=== PATIENT | female | born 1950 | race Caucasian/White ===

== ENCOUNTER 2019-06-29 20:11 | Emergency (ER) | payer SELFPAY ==
[~2019-06-29 20:11] MED LIST: ESOM40CA PO; TELM40TA2 PO
--- NOTE | 2019-06-29 21:00 | NUR ---
Patient was called several times to be triaged. Patient was not present. Left with being triaged or seen by ERMD.
== END 2019-06-29 21:32 | disposition left against medical advice (07) ==
LOC: ER 20:11
DX: Z53.21 Procedure and treatment not carried out due to patient leaving prior to being seen by health care provider (principal)

== ENCOUNTER 2019-12-08 02:11 | Inpatient (IN) | payer SELFPAY ==
[~2019-12-08] VITALS: Ht 162.6 cm; Wt 79.4 kg
--- NOTE | 2019-12-08 02:17 | NUR ---
Pt walked in the ER w/ steady gait in stable condition c/o abdominal pain and bloating since yesterday afternoon.Pt states pain is sharp 9/10 radiating to back , aggrivated by food.Pt is A/O x4 ,speaks in complete senteces,clear speech, no neuro deficit noted. Respiratory even and unlabored, no SOB noted. pt had nausea,diarrhea, but denies any vomiting.Denies any distress.Pt skin is warm and dry. Bed at lowest position, sr up X2 , call light w/in reach, fall precautions implemented.
[2019-12-08] MEDS ORDERED: MORPHINE SULFATE 2 MG/1 ML DISP.SYRIN IV ONE (02:30)
[2019-12-08] MEDS ORDERED: MORPHINE SULFATE 2 MG/1 ML DISP.SYRIN ONE (02:33)
[2019-12-08 02:45] LABS: *BILIRUBIN,URIN NEGATIVE (NEGATIVE); *BLOOD, URINE NEGATIVE (NEGATIVE); *CLARITY,URINE CLEAR (CLEAR); *COLOR,URINE YELLOW (YELLOW); *KETONES,URINE NEGATIVE (NEGATIVE); *UROBILINOGEN,URINE 0.2 E.U./dl (NORMAL); LEUKOCYTE ESTERASE ,URINE TRACE (NEGATIVE); NITRITE, URINE NEGATIVE (NEGATIVE); PH,URINE 5.5 (5.0-8.0); UGLUCOSE NEGATIVE (NEGATIVE)
[2019-12-08] MEDS ORDERED: ONDANSETRON 4 MG/2 ML VIAL IV ONE (02:45)
[2019-12-08] MEDS ORDERED: IV NS 1000 ML 1,000 ML IV ONE (02:45)
[2019-12-08 02:50] LABS: BASOPHILS # (AUTO) 0.1 K/uL (0.0-8.0); BASOPHILS % (AUTO) 0.7 % (0.0-2.0); EOSINOPHILS # (AUTO) 0.1 K/uL (0.0-0.7); EOSINOPHILS % (AUTO) 1.2 % (0.0-7.0); HEMATOCRIT 45.8 % (31.2-41.9); LYMPHOCYTES # (AUTO) 1.7 K/uL (20.0-40.0); LYMPHOCYTES % (AUTO) 20.9 % (20.5-51.5); MEAN CORPUSCULAR HEMOGLOBIN 31.8 uug (24.7-32.8); MEAN CORPUSCULAR HGB CONC 35 g/dL (32.3-35.6); MEAN CORPUSCULAR VOLUME 91.4 fL (75.5-95.3); MONOCYTES # (AUTO) 0.6 K/uL (2.0-10.0); MONOCYTES % (AUTO) 6.9 % (0.0-11.0); NEUTROPHILS # (AUTO) 5.7 K/uL (1.8-8.9); NEUTROPHILS % (AUTO) 70.3 % (38.5-71.5); PLATELET COUNT (AUTO) 265 K/uL (179-408); RED BLOOD CELL COUNT(AUTO) 5.02 MIL/uL (3.63-4.92)
[2019-12-08 02:52] LABS: RBC,URINE 0-3 /HPF (0-3); WBC,URINE 20-50 /HPF (0-3)
[2019-12-08 02:53] LABS: BACTERIA,URINE MODERATE /HPF (NONE SEEN); SQUAMOUS EPITHELIAL CELL,UR FEW /HPF (NONE SEEN)
--- NOTE | 2019-12-08 03:03 | NUR ---
pt taken to ct scan .
[2019-12-08 03:14] LABS: BILIRUBIN,TOTAL 0.5 mg/dL (0.2-1.0); CREATININE 0.7 mg/dL (0.6-1.3); TOTAL PROTEIN, SERUM 7.7 g/dL (6.4-8.2)
[2019-12-08 03:29] LABS: BILIRUBIN,DIRECT 0.1 mg/dL (0.0-0.2)
--- NOTE | 2019-12-08 04:06 | NUR ---
ERMD PERFORMED GUAIAC TEST W/ HEMOCCULT CARD PROVIDED PRIVACY AND CHAPERONED BY NON LICENSED OPERATOR (SHANNON) NEGATIVE ON TEST PT ABLE TO TOLERATE PROCEDURE MONITORED ACCORDINGLY BED AT LOWEST POSITION SIDERAILSX2 UP
--- NOTE | 2019-12-08 04:54 | NUR ---
SHOAIB ON THE PHONE WITH ROBERT TEE PT OK TO ADMIT TO RM 316 DX: CHEST PAIN, ABD PAIN RA STILL C/O EPIGASTRIC PAIN +R AC G20
[2019-12-08] MEDS ORDERED: IV NS 1000 ML 1,000 ML IV PRN (04:57)
[2019-12-08] MEDS ORDERED: LIDOCAINE VISCUS 2% 15 ML UDC MM ONE (05:00)
[2019-12-08] MEDS ORDERED: MAGNESIUM HYDROXIDE 30 ML LIQUID UDC PO PRN (05:00)
[2019-12-08] MEDS ORDERED: Z GUARD REMEDY PASTE 57 GM TUBE TOP PRN (05:00)
[2019-12-08] MEDS ORDERED: DICYCLOMINE HCL LIQ 10 MG/5 ML UDC PO ONE (05:00)
[2019-12-08] MEDS ORDERED: ASPIRIN 81 MG TAB.CHEW PO ONE (05:00)
[2019-12-08] MEDS ORDERED: ACETAMINOPHEN 325 MG TABLET PO PRN (05:00)
[2019-12-08] MEDS ORDERED: ONDANSETRON 4 MG/2 ML VIAL IV PRN (05:00)
[2019-12-08] MEDS ORDERED: MAG HYDROX/AL HYDROX/SIMETH 30 ML LIQUID UDC PO ONE (05:00)
[2019-12-08] MEDS ORDERED: HYDROCODONE/APAP 5-325MG TABLET PO PRN (05:00)
--- NOTE | 2019-12-08 05:55 | NUR ---
Pt. admitted to tele room 316 , under care of Dr. Hunter Sorto. Belongs List completed.
--- NOTE | 2019-12-08 06:36 | NUR ---
RECEIVED PT FROM ER VIA [facility]. DX: CHEST PAIN. UNDER DR. ROBERT TEE. PT IN NO ACUTE DISTRESS. IV INTACT. SAFETY AND COMOFRT PROVIDED. WILL ENDORSE TO INCOMING NURSE FOR CONTINUITY OF CARE.
[2019-12-08 06:49] VITALS: BP 139/70
[2019-12-08] MEDS ORDERED: PANTOPRAZOLE SODIUM 40 MG TABLET.DR PO SCH (07:00)
--- NOTE | 2019-12-08 07:30 | NUR ---
Received patient awake and alert with diagnosis of chest pain under Dr. Singletary. Patient currently complains of chest tightness / but refuses to take any medication for pain. Denies having any shortness of breath at this time. Vital signs stable. Reports pain has improved since arriving to the hospital. Patient noted with right sided weakness due to history of stroke when she was 14. Patient instructed to call if symptoms worsen. Call light within reach. Will continue to monitor.
[2019-12-08 07:53] LABS: MAGNESIUM 1.9 mg/dL (1.8-2.4); PHOSPHOROUS 3.6 mg/dL (2.5-4.9)
[2019-12-08 08:59] LABS: THYROID STIMULATING HORMONE 2.108 mIU/mL (0.358-3.740)
[2019-12-08] MEDS ORDERED: LOSARTAN POTASSIUM 50 MG TABLET PO SCH (09:00)
[2019-12-08] MEDS ORDERED: METOPROLOL TARTRATE 50 MG TABLET PO SCH (09:00)
[2019-12-08 11:58] VITALS: BP 132/69
--- NOTE | 2019-12-08 15:00 | NUR ---
patient is awake, alert and verbally responsive. No signs of distress noted. No SOB. No complain of Pain or discomfort. denies chest pain. patient with Order to Discharge Home today, Discharge instructions given to patient and verbalized Understanding. All belongings was sent and signed by patient. Removed IV site, wrist band and olive grower. Patient was discharge via private car in stable condition.
[2019-12-09] MEDS ORDERED: ASPIRIN EC 81 MG TABLET.DR PO SCH (09:00)
== END 2019-12-08 15:00 | disposition home or self-care (01) | DRG 206 ==
LOC: ER 02:13 → TELE3 05:56
PROVIDERS: ADMIT Hospitalist; ATTEND Internal Medicine
DX: M94.0 Chondrocostal junction syndrome [Tietze] (principal); K21.9 Gastro-esophageal reflux disease without esophagitis; K57.30 Diverticulosis of large intestine without perforation or abscess without bleeding; Z86.73 Personal history of transient ischemic attack (TIA), and cerebral infarction without residual deficits; Z90.49 Acquired absence of other specified parts of digestive tract; Z79.899 Other long term (current) drug therapy; I08.3 Combined rheumatic disorders of mitral, aortic and tricuspid valves; E11.9 Type 2 diabetes mellitus without complications
CPT/HCPCS: 36415; 70030-TC; 71045; 76705; 83605; 83690; 83735; 84100; 84443; 85025; 87086; 93005; 93307; A4663; G0378; J2270; J7030

== ENCOUNTER 2020-04-18 05:56 | Inpatient (IN) | payer MEDICAID ==
[~2020-04-18] VITALS: Ht 165.1 cm; Wt 73.5 kg
[~2020-04-18 05:56] MED LIST changes: +LOSA100T3 PO; +METO50TA16 PO; -TELM40TA2 PO
[2020-04-18] MEDS ORDERED: ASPIRIN 81 MG TAB.CHEW PO ONE (06:45)
[2020-04-18] MEDS ORDERED: ASPIRIN 81 MG TAB.CHEW ONE (06:50)
[2020-04-18 06:56] LABS: EOSINOPHILS # (AUTO) 0.1 K/uL (0.0-0.7); EOSINOPHILS % (AUTO) 1.8 % (0.0-7.0); HEMATOCRIT 42.1 % (31.2-41.9); HEMOGLOBIN 14.3 g/dL (10.9-14.3); LYMPHOCYTES % (AUTO) 19.5 % (20.5-51.5); MEAN CORPUSCULAR HEMOGLOBIN 31.6 uug (24.7-32.8); MEAN CORPUSCULAR HGB CONC 34 g/dL (32.3-35.6); MEAN CORPUSCULAR VOLUME 92.7 fL (75.5-95.3); MONOCYTES # (AUTO) 0.4 K/uL (2.0-10.0); MONOCYTES % (AUTO) 8.7 % (0.0-11.0); NEUTROPHILS # (AUTO) 3.4 K/uL (1.8-8.9); PLATELET COUNT (AUTO) 236 K/uL (179-408); RED BLOOD CELL COUNT(AUTO) 4.54 MIL/uL (3.63-4.92); WHITE BLOOD COUNT (AUTO) 4.9 K/uL (3.8-11.8)
[2020-04-18 07:10] LABS: CREATININE 0.9 mg/dL (0.6-1.3); POTASSIUM 4.1 mmol/L (3.5-5.1)
[2020-04-18 07:25] LABS: BILIRUBIN,DIRECT 0.1 mg/dL (0.0-0.2); BILIRUBIN,TOTAL 1.5 mg/dL (0.2-1.0); TOTAL PROTEIN, SERUM 6.5 g/dL (6.4-8.2)
--- NOTE | 2020-04-18 07:25 | NUR ---
PT IS IN ROOM #2A. DR SABILLON EAVALUATED THE PT.
[2020-04-18] MEDS ORDERED: MORPHINE SULFATE 2 MG/1 ML DISP.SYRIN IV PRN (08:30)
[2020-04-18] MEDS ORDERED: ACETAMINOPHEN 325 MG TABLET PO PRN (08:30)
[2020-04-18] MEDS ORDERED: MAG HYDROX/AL HYDROX/SIMETH 30 ML LIQUID UDC PO PRN (08:30)
[2020-04-18] MEDS ORDERED: DOCUSATE SODIUM 100 MG CAPSULE PO PRN (08:30)
[2020-04-18] MEDS ORDERED: NITROGLYCERIN 0.4 MG/TAB BOTTLE SL PRN (08:30)
[2020-04-18] MEDS ORDERED: ONDANSETRON 4 MG/2 ML VIAL IV PRN (08:30)
--- NOTE | 2020-04-18 09:43 | NUR ---
REPORT WAS GIVEN TO BRUSH LOADER AND HANDLE ATTACHER. PT WAS TRANSFERED TO TELEMETRY ROOM #304.
--- NOTE | 2020-04-18 10:00 | NUR ---
Patient was received from the ER and resting comfortably in bed with no signs of respiratory distress. Patient saturating well on room air. She denies any chest pain at this time but does note that she is experiencing headaches. IV on the left forearm and is intact and patent. Safety precautions in place bed in the lowest position and locked with call light and belongings within reach. Will continue to observe and monitor.
[2020-04-18] MEDS: ENOXAPARIN SODIUM 40 MG/0.4 ML DISP.SYRIN SQ SCH (10:40)
[2020-04-18 11:00] VITALS: BP 92/54
[2020-04-18] MEDS: LOSARTAN POTASSIUM 50 MG TABLET PO SCH (12:00)
--- NOTE | 2020-04-18 12:15 | NUR ---
Patient was picked up by ambulance to be transported to [facility] to have a CT of chest. Patient left is stable condition with no signs of distress noted.
[2020-04-18] MEDS ORDERED: SWABABLE VALVE TRANSFER SET EA MC ONE (15:00)
--- NOTE | 2020-04-18 15:00 | NUR ---
Patient taken down to do CT of head and neck with or without contrast. Will continue medication regimen when patient is back on the floor.
[2020-04-18] MEDS ORDERED: IV NORMAL SALINE 250 ML IV ONE (15:01)
[2020-04-18] MEDS ORDERED: IOHEXOL 300MG/ML 100 ML INFUS..BTL ONE (15:01)
--- NOTE | 2020-04-18 15:30 | NUR ---
Pt back from Ct and is sitting in bed eating. Patient shows no signs of distress at this time. Will continue to monitor.
[2020-04-18 15:55] VITALS: BP 129/64
[2020-04-18] MEDS: METOPROLOL TARTRATE 50 MG TABLET PO SCH (17:19)
--- NOTE | 2020-04-18 20:00 | NUR ---
Received patient awake and alert in bed, no signs of acute distress noted. A/Ox4. no complaints of chest pain or SOB. Vitals WNL. Heplock on the left forearm is intact and patent. Per day shift patient had CTA of head and neck, but before able to D/C Elizabeth Garcia NP wants to compare results from [facility] taken in jun 2019. Day shift nurse called medical records, but was already closed so morning shift will follow up. Safety measures initiated. Bed is low and locked, call light within reach. Will continue to monitor.
[2020-04-18 20:03] VITALS: BP 125/68
[2020-04-18] MEDS ORDERED: SIMVASTATIN 10 MG TABLET PO SCH (21:00)
--- NOTE | 2020-04-18 21:21 | NUR ---
No order to d/c tele was seen, informed Elizabeth Garcia and said it was ok to put in order. Patient is now m/s. Also, patient refused simvastatin educated patient of risk and benefits and preventative measures for stroke or heart attack, but patient stated " i don't have high cholesterol and have not taken any medication for that before" Offered twice, but patient still refused.
[2020-04-19 04:03] VITALS: BP 117/57
--- NOTE | 2020-04-19 06:31 | NUR ---
Patient initially agreed to take Protonix, explained the risk and benefits. When I came back to patient room with the medication, I opened it and then she stated "I forgot to tell the doctor I take a probiotic for my stomach so I don't want to try taking this medication" I explained that on her med recon it shows that she take Nexium at home and that this was just a converted medication and has the same effects because she says she sometimes gets heart burn and I said this will help prevent that, but she still refused she says the probiotic she uses at home works better for her stomach. Will endorse to next shift.
[2020-04-19] MEDS ORDERED: PANTOPRAZOLE SODIUM 40 MG TABLET.DR PO SCH (07:00)
[2020-04-19 07:02] LABS: BILIRUBIN,DIRECT 0.1 mg/dL (0.0-0.2); BILIRUBIN,TOTAL 0.8 mg/dL (0.2-1.0)
[2020-04-19 08:00] VITALS: BP 119/58
--- NOTE | 2020-04-19 08:00 | NUR ---
Received pt in bed asleep but arousable to name, AOx4 complained of slight headache 2/10 but pt stated that it's chronic. On RA with no SOB or distress noted. Denied chest pain at this time. Stated feeling a lot better. Call light and belongings within reach. Bed locked in lowest position with siderails 2x up.
[2020-04-19] MEDS: LOSARTAN POTASSIUM 50 MG TABLET PO SCH (08:55)
[2020-04-19] MEDS: METOPROLOL TARTRATE 50 MG TABLET PO SCH ×2 (08:55→17:31)
[2020-04-19] MEDS: ENOXAPARIN SODIUM 40 MG/0.4 ML DISP.SYRIN SQ SCH ×2 (08:58→09:00)
[2020-04-19] MEDS ORDERED: ASPIRIN 81 MG TAB.CHEW PO SCH (09:00)
[2020-04-19 09:22] LABS: BASOPHILS % (AUTO) 0.9 % (0.0-2.0); EOSINOPHILS # (AUTO) 0.1 K/uL (0.0-0.7); EOSINOPHILS % (AUTO) 1.8 % (0.0-7.0); HEMATOCRIT 41.3 % (31.2-41.9); HEMOGLOBIN 13.9 g/dL (10.9-14.3); LYMPHOCYTES # (AUTO) 1.2 K/uL (20.0-40.0); MEAN CORPUSCULAR HEMOGLOBIN 31.5 uug (24.7-32.8); MEAN CORPUSCULAR HGB CONC 34 g/dL (32.3-35.6); MEAN CORPUSCULAR VOLUME 93.2 fL (75.5-95.3); MONOCYTES # (AUTO) 0.4 K/uL (2.0-10.0); MONOCYTES % (AUTO) 9.6 % (0.0-11.0); NEUTROPHILS # (AUTO) 2.6 K/uL (1.8-8.9); NEUTROPHILS % (AUTO) 59.7 % (38.5-71.5); PLATELET COUNT (AUTO) 202 K/uL (179-408); RED BLOOD CELL COUNT(AUTO) 4.42 MIL/uL (3.63-4.92); WHITE BLOOD COUNT (AUTO) 4.3 K/uL (3.8-11.8)
[2020-04-19 09:34] LABS: CREATININE 0.9 mg/dL (0.6-1.3); MAGNESIUM 2.1 mg/dL (1.8-2.4); PHOSPHOROUS 3.8 mg/dL (2.5-4.9); POTASSIUM 4.2 mmol/L (3.5-5.1)
[2020-04-19 12:00] VITALS: BP 109/61
[2020-04-19 16:00] VITALS: BP 127/70
[2020-04-19] MEDS ORDERED: ONDA4VIA23 IV (17:27)
[2020-04-19] MEDS ORDERED: ENOX40DI SQ (17:27)
[2020-04-19] MEDS ORDERED: SIMV-49 PO (17:27)
[2020-04-19] MEDS ORDERED: ACET325T53 PO (17:27)
[2020-04-19] MEDS ORDERED: MAG30ORA PO (17:27)
[2020-04-19] MEDS ORDERED: ASPI81TA31 PO (17:27)
[2020-04-19] MEDS ORDERED: DOCU100C36 PO (17:27)
[2020-04-19 17:31] VITALS: BP 121/70
--- NOTE | 2020-04-19 18:13 | NUR ---
Gave report to Carmenza JENSEN in [facility] for transfer
--- NOTE | 2020-04-19 18:45 | NUR ---
Pt picked up by ambulance for transfer to [facility]. Transfer forms signed. DC forms and instructions signed and pt verbalized understanding. Belongings list signed and all accounted for. DC papers given to Elizabeth, ambulance personnel, including records from [facility]. IV left on left FA 20g and left AC 20 g, flushed and all patent. No complaints of chest pain, headache, nor SOB at this time.
== END 2020-04-19 18:45 | disposition short-term general hospital (02) | DRG 203 ==
LOC: ER 06:10 → TELE3 09:41 → MEDSURG3 21:13
PROVIDERS: ADMIT Registered Nurse; ATTEND Registered Nurse
DX: M94.0 Chondrocostal junction syndrome [Tietze] (principal); I67.1 Cerebral aneurysm, nonruptured; E11.9 Type 2 diabetes mellitus without complications; K21.0 Gastro-esophageal reflux disease with esophagitis; Z86.73 Personal history of transient ischemic attack (TIA), and cerebral infarction without residual deficits; E66.9 Obesity, unspecified; I10 Essential (primary) hypertension; R17 Unspecified jaundice; R51 Headache; F41.9 Anxiety disorder, unspecified; I06.0 Rheumatic aortic stenosis
CPT/HCPCS: 36415; 70030-TC; 70470; 70491; 71045; 83735; 84100; 85025; 93005; 93307; A4663; G0378; J1650; J7050; Q9967

== ENCOUNTER 2020-10-07 17:33 | Emergency (ER) | payer MEDICAID, OTHER ==
[~2020-10-07] VITALS: Ht 162.6 cm; Wt 69.4 kg
[~2020-10-07 17:33] MED LIST changes: +ACET325T53 PO; +ASPI81TA31 PO; +DOCU100C36 PO; +ENOX40DI SQ; +MAG30ORA PO; +ONDA4VIA23 IV; +SIMV-49 PO
[2020-10-07 18:56] LABS: BASOPHILS % (AUTO) 0.5 % (0.0-2.0); EOSINOPHILS % (AUTO) 0.6 % (0.0-7.0); HEMATOCRIT 45.6 % (31.2-41.9); HEMOGLOBIN 15.4 g/dL (10.9-14.3); LYMPHOCYTES # (AUTO) 0.7 K/uL (20.0-40.0); LYMPHOCYTES % (AUTO) 13.8 % (20.5-51.5); MEAN CORPUSCULAR HEMOGLOBIN 31.3 uug (24.7-32.8); MEAN CORPUSCULAR HGB CONC 34 g/dL (32.3-35.6); MEAN CORPUSCULAR VOLUME 92.9 fL (75.5-95.3); MONOCYTES # (AUTO) 0.4 K/uL (2.0-10.0); MONOCYTES % (AUTO) 6.5 % (0.0-11.0); NEUTROPHILS # (AUTO) 4.3 K/uL (1.8-8.9); NEUTROPHILS % (AUTO) 78.6 % (38.5-71.5); PLATELET COUNT (AUTO) 242 K/uL (179-408); RED BLOOD CELL COUNT(AUTO) 4.91 MIL/uL (3.63-4.92); WHITE BLOOD COUNT (AUTO) 5.4 K/uL (3.8-11.8)
[2020-10-07 18:59] LABS: CREATININE 0.9 mg/dL (0.6-1.3); POTASSIUM 4.3 mmol/L (3.5-5.1)
[2020-10-07] MEDS ORDERED: ASPIRIN 81 MG TAB.CHEW PO ONE (19:00)
--- NOTE | 2020-10-07 19:00 | NUR ---
RECEIVED REPORT FROM MARIFER COPPOLA, PT DENIED CP, POSTIONED FOR COMFORT, MONITOR SHOWS NSR. VSS.
[2020-10-07] MEDS ORDERED: ASPIRIN 81 MG TAB.CHEW ONE (19:05)
[2020-10-07 19:11] LABS: BILIRUBIN,DIRECT 0.1 mg/dL (0.0-0.2); BILIRUBIN,TOTAL 0.7 mg/dL (0.2-1.0); TOTAL PROTEIN, SERUM 7.5 g/dL (6.4-8.2)
[2020-10-07] MEDS ORDERED: NITROGLYCERIN 0.4 MG/TAB BOTTLE SL ONE (19:15)
--- NOTE | 2020-10-07 20:33 | NUR ---
COVID SWAB SENT TO LAB.
--- NOTE | 2020-10-08 00:06 | NUR ---
CALLED [employer] [facility] AT [phone] WAS PLACED ON HOLD FOR 10 MIN .
--- NOTE | 2020-10-08 00:55 | NUR ---
CALLED [facility] AT [phone] TO GIVE REPORT TO CHARGE PLACED ON HOLD FOR 10 MIN, NO ANSWER.
--- NOTE | 2020-10-08 02:48 | NUR ---
SBAR REPORT TO MADDY GARCIA FROM [employer].
--- NOTE | 2020-10-08 03:07 | NUR ---
spoke to shirley at [facility] ambulance staed eta for transport would be at 0700. presently pt is asleep, nsr/vss on monitor.
--- NOTE | 2020-10-08 05:00 | NUR ---
PT INFORMED EARLIER THAT SHE WAS TO GO TO [facility] ER AT ABOUT 7AM [facility] TO ARRIVE, SHE SAID THAT WAS FINE, PT WAS POSITIONED FOR COMFORT AT THAT TIME, MONITOR SHOWS NSR,VSS.
--- NOTE | 2020-10-08 06:49 | NUR ---
PT AND SIGNED TRANSFER ACKNOWLEDGEMENT SHEETS.
--- NOTE | 2020-10-08 08:04 | NUR ---
SBAR REPORT TO JENNY GARCIA AT [facility] F=GIVEN, AT [facility] THE [facility]. REPORT GIVEN,COPY OF CHART AND TESTS GIVEN.
== END 2020-10-08 07:15 | disposition short-term general hospital (02) ==
LOC: ER 17:33
DX: R07.9 Chest pain, unspecified (principal); K29.50 Unspecified chronic gastritis without bleeding; R94.31 Abnormal electrocardiogram [ECG] [EKG]; Z20.828 Contact with and (suspected) exposure to other viral communicable diseases; I10 Essential (primary) hypertension; E78.5 Hyperlipidemia, unspecified; I09.9 Rheumatic heart disease, unspecified; E11.9 Type 2 diabetes mellitus without complications; Z79.82 Long term (current) use of aspirin; Z79.899 Other long term (current) drug therapy; Z86.79 Personal history of other diseases of the circulatory system
CPT/HCPCS: 36415; 70030-TC; 71045; 85025; 93005; A4663

== ENCOUNTER 2021-02-11 18:48 | Emergency (ER) | payer OTHER ==
[~2021-02-11] VITALS: Ht 165.1 cm; Wt 70.3 kg
--- NOTE | 2021-02-11 19:45 | NUR ---
MD Snow at bedside to do MSE.
[2021-02-11] MEDS ORDERED: EPINEPHRINE 1 MG/1 ML AMP SQ ONE (20:45)
[2021-02-11] MEDS ORDERED: EPINEPHRINE 1 MG/1 ML AMP ONE (20:50)
[2021-02-11 22:25] VITALS: BP 130/85
--- NOTE | 2021-02-11 22:25 | NUR ---
Patient discharged to home in stable condition. Written and verbal after care instructions given. Patient verbalizes understanding of instructions. Stressed follow up or return to ER for worsening s/s.
== END 2021-02-11 22:26 | disposition home or self-care (01) ==
LOC: ER 18:48
DX: M96.831 Postprocedural hemorrhage of a musculoskeletal structure following other procedure (principal); I10 Essential (primary) hypertension; Z86.79 Personal history of other diseases of the circulatory system; I35.8 Other nonrheumatic aortic valve disorders; K21.9 Gastro-esophageal reflux disease without esophagitis; Z79.01 Long term (current) use of anticoagulants; Z79.899 Other long term (current) drug therapy
CPT/HCPCS: 41899; 99283; J0171; A4663